=== PATIENT | female | born 1970 | race Hispanic/Latino ===

== ENCOUNTER 2017-08-11 06:02 | Inpatient (IN) | payer BC ==
[~2017-08-11 06:02] MED LIST: APRESOLINE IV PRN; FLAGYL 500 MG/100 ML 500 MG/100 ML BAG IV NR; LEVAQUIN 500MG/100ML 500 MG/100 ML BAG IV NR; LOVENOX SUB-Q NR; MYLICON PO PRN; NACL 0.9% 1000 ML 1,000 ML IV SCH; NORCO PO PRN; PEPCID IV NR; REGLAN IV PRN; TRANSDERM-SCOP TD NR; VERSED IV NR; ZOFRAN IV PRN
[2017-08-11] MEDS ORDERED: NACL BACTERIOSTATIC INFILTRATI ONE (06:35)
[2017-08-11] MEDS: LACTATED RINGERS 1,000 ML IV SCH ×2 (07:00→14:56)
[2017-08-11] MEDS ORDERED: MORPHINE IV PRN (07:18)
--- NOTE | 2017-08-11 07:18 | Anesthesia Consultation ---
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
--- NOTE | 2017-08-11 07:18 | Anesthesia Day of Surgery ---
Anesthesia Day of Surgery - Day of Surgery Patient Examined: Yes Patient H&P Reviewed: Yes Patient is NPO: Yes
[2017-08-11] MEDS ORDERED: ZEMURON IV ONE (07:22)
[2017-08-11] MEDS ORDERED: XYLOCAINE MPF 2% ONE (07:22)
[2017-08-11] MEDS ORDERED: SUBLIMAZE ONE (07:23)
[2017-08-11] MEDS ORDERED: DIPRIVAN 10 MG/ML IV ONE (07:23)
[2017-08-11] MEDS ORDERED: XYLOCAINE 1% MPF 5 mL ONE (07:24)
[2017-08-11] MEDS ORDERED: MARCAINE 0.5% 30 ML INFILTRATI ONE (07:24)
[2017-08-11] MEDS ORDERED: XYLOCAINE 1% MPF 5 mL INFILTRATI ONE (08:22)
[2017-08-11] MEDS ORDERED: MARCAINE 0.5% INFILTRATI ONE (08:22)
[2017-08-11] MEDS ORDERED: NACL 0.9% IR ONE (08:22)
[2017-08-11] MEDS ORDERED: ePHEDrine SULFATE ONE (08:36)
[2017-08-11] MEDS ORDERED: NEO SYNEPHRINE/NS Syringe(OR USE) IV ONE (08:41)
[2017-08-11] MEDS ORDERED: DECADRON ONE (08:58)
[2017-08-11] MEDS ORDERED: ZOFRAN ONE (08:58)
[2017-08-11] MEDS ORDERED: NEOSTIGMINE ONE (09:00)
[2017-08-11] MEDS ORDERED: ROBINUL ONE (09:00)
[2017-08-11] MEDS ORDERED: DILAUDID ONE (09:16)
[2017-08-11] MEDS: MORPHINE IV PRN ×2 (11:58→17:56)
[2017-08-11] MEDS ORDERED: SINGULAIR PO SCH (18:00)
[2017-08-11] MEDS ORDERED: ELAVIL PO SCH (22:00)
[2017-08-12] MEDS: MORPHINE IV PRN ×3 (00:34→13:22)
[2017-08-12] MEDS: LACTATED RINGERS 1,000 ML IV SCH (00:38)
[2017-08-12] MEDS: CALAN PO SCH ×2 (01:20→10:16)
[2017-08-12] MEDS: XARELTO PO SCH ×2 (01:20→10:17)
[2017-08-12] MEDS: TOPAMAX PO SCH ×2 (01:20→10:16)
[2017-08-12 05:45] LABS: Hematocrit 38.6 % (30.3-42.9); Hemoglobin 12.6 gm/dl (10.1-14.3); Mean Corpuscular HGB Conc 33 % (30-34); Mean Corpuscular Hemoglobin 27 pg (28-32); Mean Corpuscular Volume 83 fl (79-97); Red Blood Count 4.66 M/mm3 (3.65-5.03); Red Cell Distribution Width 14.8 % (13.2-15.2); White Blood Count 8.1 K/mm3 (4.5-11.0)
[2017-08-12 05:55] LABS: Anion Gap 21 mmol/L; BUN/Creatinine Ratio 20; Blood Urea Nitrogen 10 mg/dL (7-17); Calcium 8.4 mg/dL (8.4-10.2); Carbon Dioxide 18 mmol/L (22-30); Chloride 106.8 mmol/L (98-107); Glucose 109 mg/dL (65-100); Potassium 4.3 mmol/L (3.6-5.0); Sodium 141 mmol/L (137-145)
[2017-08-12] MEDS ORDERED: SYNTHROID PO SCH ×2 (06:00→10:00)
[2017-08-12 06:38] LABS: Basophils % (Manual) 0 % (0.0-1.8); Blastocytes % (Manual) 0 %; Diff Status Complete; Platelet Estimate Consistent w Auto; RBC Morphology Normal
[2017-08-12 07:15] LABS: Platelet Count 174 K/mm3 (140-440)
[2017-08-12] MEDS ORDERED: LOVENOX SUB-Q SCH (10:00)
[2017-08-12] MEDS ORDERED: DILANTIN PO SCH (10:00)
[2017-08-12] MEDS ORDERED: ULTRAM PO PRN (12:23)
--- NOTE | 2017-08-12 12:54 | Discharge Summary ---
Providers - Providers Date of Admission: 08/11/17 06:02 Attending physician: NOHEMY ZUNIGA Primary care physician: BIANCA RUBIO Hospitalization Condition: Good Procedures: laparoscopic GJ revision with biliopancreatic limb lengthening. Hospital course: 46 y.o. F presented to the hospital for laparoscopic GJ revision with biliopancreatic limb lengthening. She tolerated the procedure well. On POD 1 she was able to tolerate clear liquids and her pain was controlled. She denies vomiting. Her nausea was controlled. 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 After surgery she had bleeding at her umbilicus at the surgical site that had to be redressed 2x. On POD 1 there was minimal oozing at the umbilicus- the umbililicus was packed with surgicele and gauze. The pt was discharged on POD 1 with her pain controlled, nausea controlled and tolerating clears. Disposition: DC-01 TO HOME OR SELFCARE Core Measure Documentation - Palliative Care Palliative Care/ Comfort Measures: Not Applicable - Core Measures Any of the following diagnoses?: none Exam - Physical Exam Narrative exam: gen: A+Ox3 resp:equal rise and fall of chest cardio: rrr abd: obese, dressings dry blood. umbililus: packing removed- minimal oozing at umbilicus- packed with surgicelle and gauze and covered with a pressure dressing. tender at umbilicus ext; no c/c/e - Constitutional Vitals: Temp Pulse Resp BP Pulse Ox 98.9 F 91 H 20 134/64 94 08/12/17 07:40 08/12/17 07:40 08/12/17 07:40 08/12/17 07:40 08/12/17 07:40 Plan Activity: other (no lifting >15lbs for 6 weeks. ) Diet: clear liquids (sugar free clears ) Wound: keep clean and dry, other (leave dressing in place until wound check. if bleeding at umbilicus- call office. ) Additional Instructions: follow up for wound check. Follow up with: BIANCA RUBIO MD [Primary Care Provider] - 7 Days
[2017-08-12 12:59] VITALS: BP 132/72
[2017-08-12] MEDS ORDERED: SILVER NITRATE TP ONE ×2 (13:05→13:19)
[2017-08-14] MEDS ORDERED: TRANSDERM-SCOP TD SCH (06:00)
== END 2017-08-12 16:30 | disposition home or self-care (01) | DRG 328 ==
LOC: 3A 06:02 → 3B-SURG 10:31
PROVIDERS: ADMIT Specialist; ATTEND Specialist
PROC: 0D164ZB Bypass Stomach to Ileum, Percutaneous Endoscopic Approach (ICD-10-PCS; principal; 2017-08-11)
PROC: 0BQT4ZZ Repair Diaphragm, Percutaneous Endoscopic Approach (ICD-10-PCS; 2017-08-11)
DX: K95.89 Other complications of other bariatric procedure (principal); K44.9 Diaphragmatic hernia without obstruction or gangrene; E07.9 Disorder of thyroid, unspecified; G47.30 Sleep apnea, unspecified; I10 Essential (primary) hypertension; K21.9 Gastro-esophageal reflux disease without esophagitis; K31.89 Other diseases of stomach and duodenum; Y83.8 Other surgical procedures as the cause of abnormal reaction of the patient, or of later complication, without mention of misadventure at the time of the procedure; E11.9 Type 2 diabetes mellitus without complications; Z90.49 Acquired absence of other specified parts of digestive tract; Z98.84 Bariatric surgery status; Z82.49 Family history of ischemic heart disease and other diseases of the circulatory system; Z83.3 Family history of diabetes mellitus; Z79.899 Other long term (current) drug therapy; Z88.0 Allergy status to penicillin; Z88.2 Allergy status to sulfonamides; Z88.8 Allergy status to other drugs, medicaments and biological substances; Z91.040 Latex allergy status; Y92.89 Other specified places as the place of occurrence of the external cause; E66.01 Morbid (severe) obesity due to excess calories
CPT/HCPCS: 36415; 80048; 85007; 85025; J1100; J1170; J1650; J1956; J2250; J2270; J2370; J2405; J2704; J2710; J3010; J7120